=== PATIENT | female | born 1985 | race Caucasian/White ===

== ENCOUNTER → 2016-08-17 | Outpatient (CLI) | payer BC, OTHER ==
[~2016-08-17] MED LIST: ALBU1AER9 INFIL; DVN/160 PO; DXY100 PO; FLUO20CA36 PO; LANS30CA63 PO; LCTX PO; METO25TA56 PO; NOTE:; PENC1CRE33 TOP; PLQ200 PO; WLLSR150 PO
[2016-08-17 13:06] LABS: BASO % 0.2 %; BASO ABS # 0.02 K/uL (0-0.2); COMPLETE YES; EOS % 3.9 %; HEMATOCRIT 43.5 % (37-47); IG% 0.2 %; LYMPH % 13.3 %; LYMPH ABS # 1.33 K/uL (1.2-3.4); MEAN CELL VOLUME 93.1 fL (80-100); MEAN CORPUSCULAR HEMOGLOBIN 32.1 pg (25-34); MEAN CORPUSCULAR HGB CONC 34.5 g/dl (32-36); MEAN PLATELET VOLUME 10.9 fL (7.4-10.4); MONO % 9.3 %; NEUT % 73.1 %; PLATELET COUNT 290 K/uL (130-400); RED BLOOD COUNT 4.67 M/uL (4.2-5.4)
[2016-08-17 13:41] LABS: CALCIUM 9.5 mg/dl (8.5-10.1)
[2016-08-17 13:46] LABS: ALB/GLOB RATIO 1.1 (0.9-2); ALT/SGPT 210 U/L (12-78); AMYLASE 26 U/L (25-115); AST/SGOT 174 U/L (15-37); BLOOD UREA NITROGEN 9 mg/dl (7-18); BUN/CREATININE RATIO 12.3 (10-20); CARBON DIOXIDE 28 mmol/L (21-32); CHLORIDE 102 mmol/L (98-107); CREATININE 0.69 mg/dl (0.60-1.20); GLUCOSE 95 mg/dl (70-99); POTASSIUM 3.8 mmol/L (3.5-5.1); SODIUM 138 mmol/L (136-145)
[2016-08-17 13:49] LABS: ALKALINE PHOSPHATASE 88 U/L (45-117)
[2016-08-17 14:05] LABS: THYROID STIMULATING HORMONE 0.569 uIu/ml (0.300-4.500)
== END | disposition home or self-care (01) ==
LOC: C.LABMFLN 10:28
PROVIDERS: ATTEND Physician Assistant
DX: K58.9 Irritable bowel syndrome, unspecified (principal); K21.9 Gastro-esophageal reflux disease without esophagitis; R19.7 Diarrhea, unspecified; L02.416 Cutaneous abscess of left lower limb

== ENCOUNTER → 2016-08-22 | Outpatient (CLI) | payer OTHER ==
[2016-08-24 08:02] LABS: AFP TUMOR MARKER SERUM 2.2 NG/ML (<6.1)
== END | disposition home or self-care (01) ==
LOC: C.LABMFLN 15:09
PROVIDERS: ATTEND Internal Medicine Gastroenterology
DX: D13.4 Benign neoplasm of liver (principal)

== ENCOUNTER → 2017-02-06 | Outpatient (CLI) | payer OTHER | END | disposition home or self-care (01) | LOC: C.LABMFLN 08:17 | PROVIDERS: ATTEND Internal Medicine Endocrinology, Diabetes & Metabolism | DX: E04.2 Nontoxic multinodular goiter (principal) ==

== ENCOUNTER → 2017-03-31 | Outpatient (CLI) | payer OTHER | END | disposition home or self-care (01) | LOC: C.LABMFLN 09:18 | PROVIDERS: ATTEND Physician Assistant | DX: Z00.00 Encounter for general adult medical examination without abnormal findings (principal) ==

== ENCOUNTER → 2017-05-11 | Outpatient (CLI) | payer OTHER ==
[2017-05-17 05:16] LABS: ANA SCREEN TC 249X POSITIVE (NEGATIVE); ANTI-SS-A <1.0 NEG AI (<1.0 NEG); ANTI-SS-B <1.0 NEG AI (<1.0 NEG); COMPLEMENT C3 TC 44859W 125 MG/DL (90-180); COMPLEMENT C4 TC 44982E 19 MG/DL (16-47)
== END | disposition home or self-care (01) ==
LOC: C.LABMFLN 12:03
PROVIDERS: ATTEND Family Medicine
DX: R76.8 Other specified abnormal immunological findings in serum (principal); M35.1 Other overlap syndromes